=== PATIENT | male | born 1990 | race Caucasian/White ===

== ENCOUNTER 2020-02-19 19:52 | Emergency (ER) | payer OTHER ==
[~2020-02-19] VITALS: Ht 175.3 cm; Wt 90.0 kg
[2020-02-19 19:58] VITALS: BP 140/96; TEMP 97.4
[2020-02-19 20:59] VITALS: PULSE 88
== END 2020-02-19 21:00 | disposition home or self-care (01) ==
LOC: COL.ER 19:52
DX: S60.552A Superficial foreign body of left hand, initial encounter (principal); Z23 Encounter for immunization; Y93.69 Activity, other involving other sports and athletics played as a team or group